=== PATIENT | female | born 1935 | race Hispanic/Latino ===

== ENCOUNTER 2021-04-18 10:23 | Emergency (ER) | payer MEDICARE ==
[~2021-04-18] VITALS: Ht 175.3 cm; Wt 71.4 kg
[2021-04-18] MEDS ORDERED: LEVOTHYROXINE50 MCG PO (11:32)
[2021-04-18] MEDS ORDERED: ALENDRONATE SOD70 MG (11:32)
[2021-04-18] MEDS ORDERED: NAPROSYN500 MG PO (11:32)
[2021-04-18] MEDS ORDERED: ATORVASTATIN CA20 MG PO (11:32)
[2021-04-18] MEDS ORDERED: TRAMADOL HCL 50 MG TAB PO STA (11:49)
[2021-04-18] MEDS ORDERED: ULTRAM50 MG PO (12:02)
== END 2021-04-18 12:12 | disposition home or self-care (01) ==
LOC: FSED 10:46
DX: M25.572 Pain in left ankle and joints of left foot (principal); E78.5 Hyperlipidemia, unspecified; E03.9 Hypothyroidism, unspecified; M54.9 Dorsalgia, unspecified; G89.29 Other chronic pain
CPT/HCPCS: 99283